=== PATIENT | male | born 1955 | race Caucasian/White ===

== ENCOUNTER 2019-09-08 10:37 | Day surgery (SDC) | payer BC ==
[~2019-09-08] VITALS: Ht 172.7 cm; Wt 113.6 kg
[2019-09-08] VITALS (10 sets, daily range): BP systolic 129–149; BP diastolic 72–98
[2019-09-08] MEDS ORDERED: normal saline 1,000 ML IV SCH (11:00)
[2019-09-08] MEDS ORDERED: diphenhydrAMINE 25mg capsule PO PRN (11:00)
[2019-09-08] MEDS ORDERED: OXCA600T9 PO (11:12)
[2019-09-08] MEDS ORDERED: PANT40TA4 PO (11:13)
[2019-09-08] MEDS ORDERED: APIX5TAB3 PO (11:13)
[2019-09-08] MEDS ORDERED: LOVA40TA2 PO (11:13)
[2019-09-08] MEDS ORDERED: NEBI10TA2 PO (11:13)
[2019-09-08] MEDS ORDERED: FLEC100T2 PO (11:13)
[2019-09-08] MEDS ORDERED: OLME40TA18 PO (11:13)
[2019-09-08 12:00] LABS: BASOPHILS # (AUTO) 0.1 X10'3 (0-0.2); EOSINOPHILS # (AUTO) 0.2 X10'3 (0-0.9); EOSINOPHILS % (AUTO) 3.1 % (0-6); HEMOGLOBIN 14.7 g/dl (14.0-17.9); LYMPHOCYTES # (AUTO) 1.3 X10'3 (1.1-4.8); MEAN CORPUSCULAR HGB CONC 34.2 g/dL (33.0-36.5); MEAN CORPUSCULAR VOLUME 102.6 FL (78-98); MONOCYTES # (AUTO) 0.4 X10'3 (0-0.9); MONOCYTES % (AUTO) 6.6 % (2-12); NEUTROPHILS # (AUTO) 3.9 X10'3 (1.8-7.7); NEUTROPHILS % (AUTO) 67.3 % (42-75); PLATELET COUNT 218 X10'3 (140-440); RED BLOOD COUNT 4.19 X10'6 (4.70-6.10); RED CELL DISTRIBUTION WIDTH 13.1 % (11.5-14.5); WHITE BLOOD COUNT 5.8 X10'3 (4.5-11.0)
[2019-09-08 12:10] LABS: ALBUMIN 4.4 G/DL (3.4-5.0); ANION GAP 8 (8-16); BLOOD UREA NITROGEN 16 MG/DL (7-18); BUN/CREATININE RATIO 13.9 (5.4-32.0); CALCIUM 9.3 MG/DL (8.5-10.1); CHLORIDE 96 MMOL/L (99-107); CREATININE 1.15 MG/DL (0.60-1.10); GLUCOSE 93 MG/DL (70-104); MAGNESIUM 2.2 MG/DL (1.5-2.4); POTASSIUM 4.8 MMOL/L (3.5-5.1); SODIUM 131 MMOL/L (135-145); eGFR 64 ML/MIN
[2019-09-08] MEDS ORDERED: midazolam 2 mg/2 ml injection ONE ×2 (13:42→14:10)
[2019-09-08] MEDS ORDERED: iohexol 350 MG/ML 50ML vial IV ONE (13:43)
[2019-09-08] MEDS ORDERED: LIDOcaine 1% (10mg/ml)w/preservative injection 20ml MDV ONE (13:43)
[2019-09-08] MEDS ORDERED: iohexol 350MG/ML 100ml bottle IV ONE (13:43)
[2019-09-08] MEDS ORDERED: fentaNYL/PF 50MCG/1 ML 2ML syringe ONE (13:43)
[2019-09-08] MEDS ORDERED: proCHLORperazine 10 MG/2 ml inj ONE (14:17)
[2019-09-08] MEDS ORDERED: proCHLORperazine 10 MG/2 ml inj IV PRN (15:00)
[2019-09-08] MEDS ORDERED: ondansetron/PF 4mg/2ml inj IV PRN (15:00)
[2019-09-08] MEDS ORDERED: HYDROcodone/acetaminophen 10/325mg tab PO PRN (15:00)
[2019-09-08] MEDS ORDERED: acetaminophen 325mg tablet PO PRN (15:00)
[2019-09-08] MEDS ORDERED: HYDROcodone/acetaminophen 5mg/325mg tablet PO PRN (15:00)
== END 2019-09-08 18:15 | disposition home or self-care (01) ==
LOC: SSTAY O 10:37
PROVIDERS: ATTEND Internal Medicine Cardiovascular Disease
DX: R94.39 Abnormal result of other cardiovascular function study (principal); I25.119 Atherosclerotic heart disease of native coronary artery with unspecified angina pectoris; I48.0 Paroxysmal atrial fibrillation; I10 Essential (primary) hypertension; E78.5 Hyperlipidemia, unspecified; G47.30 Sleep apnea, unspecified; K21.9 Gastro-esophageal reflux disease without esophagitis; E87.1 Hypo-osmolality and hyponatremia; Z98.890 Other specified postprocedural states; Z79.899 Other long term (current) drug therapy; Z88.8 Allergy status to other drugs, medicaments and biological substances
CPT/HCPCS: 36415; 80048; 83735; 85025; 85610; 93005; 93458; 99152; C1769; C1894; J0780; J1644; J2001; J2250; J3010; J7030; Q0163; Q9967; A4620; A6258; C1760

== ENCOUNTER 2022-09-25 06:40 | Day surgery (SDC) | payer MEDICARE, BC ==
[2022-09-25] VITALS (26 sets, daily range): BP systolic 80–150; BP diastolic 53–108
[~2022-09-25] VITALS: Ht 177.8 cm; Wt 122.9 kg
[~2022-09-25 06:40] MED LIST: APIX5TAB3 PO; FLEC100T2 PO; LOVA40TA2 PO; NEBI10TA2 PO; OLME40TA18 PO; OXCA600T9 PO; PANT40TA54 PO
[2022-09-25] MEDS ORDERED: normal saline 500ml IV soln 500 ML IV ONE (07:00)
[2022-09-25] MEDS ORDERED: normal saline 1000ml 1,000 ML IV SCH (07:00)
[2022-09-25] MEDS ORDERED: fentaNYL/PF 50MCG/1 ML 2ML syringe IV ONE (07:00)
[2022-09-25] MEDS ORDERED: glycopyrrolate 0.2mg/ml inj IV ONE (07:00)
[2022-09-25] MEDS ORDERED: MIDAZolam 1mg/ml 10ml vial IV ONE (07:00)
[2022-09-25] MEDS ORDERED: OMEP40CA21 PO (07:22)
[2022-09-25] MEDS ORDERED: DOXA4TAB3 PO (07:22)
[2022-09-25] MEDS ORDERED: LEVE500T PO (07:22)
[2022-09-25] MEDS ORDERED: ASPI81TA52 PO (07:22)
[2022-09-25] MEDS ORDERED: ROSU40TA PO (07:23)
[2022-09-25 07:56] LABS: BASOPHILS % (AUTO) 0.7 % (0-1); EOSINOPHILS # (AUTO) 0.3 X10'3 (0-0.9); EOSINOPHILS % (AUTO) 4.8 % (0-6); HEMATOCRIT 42.9 % (42.0-52.0); HEMOGLOBIN 14.5 g/dl (14.0-17.9); LYMPHOCYTES # (AUTO) 1.8 X10'3 (1.1-4.8); LYMPHOCYTES % (AUTO) 26.6 % (21-51); MEAN CORPUSCULAR HEMOGLOBIN 33.3 PG (27.0-31.0); MEAN CORPUSCULAR HGB CONC 33.7 g/dL (33.0-36.5); MEAN CORPUSCULAR VOLUME 98.8 FL (78-98); MEAN PLATELET VOLUME 8.5 FL (7.4-10.4); MONOCYTES # (AUTO) 0.5 X10'3 (0-0.9); NEUTROPHILS # (AUTO) 4.1 X10'3 (1.8-7.7); NEUTROPHILS % (AUTO) 59.9 % (42-75); PLATELET COUNT 185 X10'3 (140-440); RED BLOOD COUNT 4.34 X10'6 (4.70-6.10); WHITE BLOOD COUNT 6.8 X10'3 (4.5-11.0)
[2022-09-25 08:50] LABS: ANION GAP 8 (8-16); BLOOD UREA NITROGEN 21 MG/DL (7-18); BUN/CREATININE RATIO 14.7 (5.4-32.0); CHLORIDE 106 MMOL/L (99-107); CREATININE 1.43 MG/DL (0.60-1.10); GLUCOSE 100 MG/DL (70-104); MAGNESIUM 2.5 MG/DL (1.5-2.4); POTASSIUM 4.5 MMOL/L (3.5-5.1); SODIUM 138 MMOL/L (135-145); TOTAL CARBON DIOXIDE 24.2 MMOL/L (24-32); eGFR 49 ML/MIN
== END 2022-09-25 11:57 | disposition home or self-care (01) ==
LOC: SSTAY O 06:40
PROVIDERS: ATTEND Internal Medicine Cardiovascular Disease
DX: I48.0 Paroxysmal atrial fibrillation (principal); I48.92 Unspecified atrial flutter; I34.0 Nonrheumatic mitral (valve) insufficiency; E78.5 Hyperlipidemia, unspecified; K21.9 Gastro-esophageal reflux disease without esophagitis; G47.30 Sleep apnea, unspecified; G40.909 Epilepsy, unspecified, not intractable, without status epilepticus; I10 Essential (primary) hypertension; I49.3 Ventricular premature depolarization; Z79.82 Long term (current) use of aspirin; Z79.01 Long term (current) use of anticoagulants; Z79.899 Other long term (current) drug therapy; Z98.890 Other specified postprocedural states; Z88.8 Allergy status to other drugs, medicaments and biological substances; Z72.89 Other problems related to lifestyle; Z82.49 Family history of ischemic heart disease and other diseases of the circulatory system
CPT/HCPCS: 36415; 80048; 83735; 85025; 85610; 92960; 93005; 93312; 93325; 94760; J2250; J3010; J3490; J7030; A4620